=== PATIENT | female | born 1975 ===

== ENCOUNTER 2018-04-18 22:58 | Emergency (ER) | payer OTHER ==
[2018-04-18 22:58] VITALS: BMI 29.0
[2018-04-18 23:04] VITALS: BP 136/85; PULSE 85; RESP 20; TEMP 98.4; O2SAT 97
--- NOTE | 2018-04-18 23:36 | C.PDOC ---
History Of Present Illness 42 year old female presents to the ED c/o right lower toothache for the past 2 days. Patient denies injury, fall, trauma, fever, chills, nausea, vomit, facial swelling. Time Seen by Provider: 04/18/18 23:09 Chief Complaint (Nursing): Dental Pain History Per: Patient History/Exam Limitations: no limitations Onset/Duration Of Symptoms: Days (2) Current Symptoms Are (Timing): Still Present Quality: Positive for: "Pain" Recent travel outside of the [place]: No Additional History Per: Patient Past Medical History Reviewed: Historical Data, Nursing Documentation, Vital Signs Vital Signs: Last Vital Signs Temp 98.4 F 04/18/18 23:01 Pulse 85 04/18/18 23:01 Resp 20 04/18/18 23:01 BP 136/85 04/18/18 23:01 Pulse Ox 97 04/18/18 23:57 - Medical History PMH: No Chronic Diseases Surgical History: No Surg Hx Family History: States: Unknown Family Hx - Social History Hx Tobacco Use: No Hx Alcohol Use: No Hx Substance Use: Yes - Immunization History Hx Tetanus Toxoid Vaccination: No Hx Influenza Vaccination: No Hx Pneumococcal Vaccination: No Review Of Systems Constitutional: Negative for: Fever, Chills ENT: Positive for: Mouth Pain. Negative for: Nose Discharge, Nose Congestion, Mouth Swelling Respiratory: Negative for: Cough, Shortness of Breath Gastrointestinal: Negative for: Nausea, Vomiting Skin: Negative for: Rash Neurological: Negative for: Headache Physical Exam - Physical Exam Appears: Non-toxic, No Acute Distress Skin: Normal Color, Warm, Dry Head: Atraumatic, Normacephalic Eye(s): bilateral: Normal Inspection Ear(s): Bilateral: Normal Nose: No Discharge Oral Mucosa: Moist Teeth: Edentulous (area between right lower 2nd and 3rd molars), Tender To Palpation (arounf the area of right lower 2nd and 3rd molar. no fluctuation, exudates) Gingiva: Tender (arounf the area of right lower 2nd and 3rd molar), No Bleeding Throat: Normal, No Erythema, No Exudate Neck: Normal ROM, Supple Extremity: Normal ROM Neurological/Psych: Oriented x3, Normal Speech Gait: Steady ED Course And Treatment O2 Sat by Pulse Oximetry: 97 (ON RA) Pulse Ox Interpretation: Normal Progress Note: Paln: - Motrin 800 mg PO. - Penicillin 500 mg PO. Patient was advised to follow up with Dentist. Disposition Counseled Patient/Family Regarding: Diagnosis, Need For Followup, Rx Given - Disposition Referrals: Non [facility] Provider, [Primary Care Provider] - Disposition: HOME/ ROUTINE Disposition Time: 23:34 Condition: STABLE Additional Instructions: PLEASE FOLLOW UP WITH DENTIST PLEASE CALL AND MAKE APPOINTMENT AVOID BITING ON HARD FOOD, EATING VERY COLD OR HOT BEVERAGES OR FOOD TAKE MEDS A DIRECTED RETURN TO ER IF WORSE Prescriptions: Ibuprofen [Motrin Tab] 800 mg PO QID #20 tab Penicillin VK [Penicillin VK Tab] 1,000 mg PO BID #28 tab Instructions: Dental Pain (DC) Forms: [employer] ([place]) - Clinical Impression Clinical Impression: Dental caries, Pain, dental - 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 - Scribe Statement The provider has reviewed the documentation as recorded by the Scribe Cole Wylie All medical record entries made by the Scribe were at my direction and personally dictated by me. I have reviewed the chart and agree that the record accurately reflects my personal performance of the history, physical exam, medical decision making, and the department course for this patient. I have also personally directed, reviewed, and agree with the discharge instructions and disposition.
== END 2018-04-18 23:48 | disposition home or self-care (01) ==
LOC: SUPCPDRO 22:58 → C.ER 22:58
DX: K02.9 Dental caries, unspecified (principal)